=== PATIENT | female | born 1995 | race African-American/Black ===

== ENCOUNTER 2016-11-12 01:36 | Emergency (ER) | payer OTHER ==
[~2016-11-12] VITALS: Ht 180.3 cm; Wt 81.6 kg
[~2016-11-12 01:36] MED LIST: AUGMENTIN 875 M1 TAB PO; FLEXERIL10 MG PO; IBUPROFEN800 MG PO; MOTRIN 400MG (400 MG PO; MOTRIN800 MG PO
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
[2016-11-12] MEDS ORDERED: POLYTRIM EYE DR10 ML OPH (01:59)
[2016-11-12] MEDS ORDERED: IBUPROFEN600 M1 PO (01:59)
[2016-11-12 02:02] VITALS: BP 106/75
== END 2016-11-12 02:29 ==
LOC: ERH 01:36
DX: S00.81XA Abrasion of other part of head, initial encounter (principal); S00.93XA Contusion of unspecified part of head, initial encounter; W20.8XXA Other cause of strike by thrown, projected or falling object, initial encounter

== ENCOUNTER 2016-12-27 00:57 | Emergency (ER) | payer OTHER ==
[~2016-12-27] VITALS: Ht 180.3 cm; Wt 86.2 kg
[~2016-12-27 00:57] MED LIST changes: +IBUPROFEN600 M1 PO; +POLYTRIM EYE DR10 ML OPH
[2016-12-27 01:16] VITALS: BP 131/75
--- NOTE | 2016-12-27 01:26 | ED INFLUENZA/URI COMPLAINT ---
History of Present Illness General Chief Complaint: General Adult Stated Complaint: SOB/SORE THROAT/COUGH Source: patient Exam Limitations: no limitations Vital Signs & Intake/Output Vital Signs & Intake/Output Vital Signs Date Time Temp Pulse Resp B/P Pulse O2 O2 Flow FiO2 Ox Delivery Rate 12/27 0116 97.6 86 18 131/75 99 Room Air Allergies Coded Allergies: NO KNOWN ALLERGIES (06/22/13) Reconcile Medications Albuterol Sulfate (Proair Hfa) 90 MCG HFA.AER.AD 2 PUF INH Q4-6 PRN PRN WHEEZING Ibuprofen 600 MG TABLET 1 TAB PO TID PRN pain with food Polytrim (Polytrim Eye Drops) 10,000 UNIT-1 MG/ML DROPS 2 GTT OPH Q6 eye infection x7days Prednisone 50 MG TABLET 1 TAB PO DAILY ASTHMA Triage Note: PT TO ED COMPLAINING OF SOB AND PAIN IN CHEST WITH DEEP INHALATION. O2 SAT 99% IN TRIAGE. PT STATES SHE WENT TO [facility] 2 DAYS AGO AND WAS DIAGNOSED WITH STREP THROAT. SOB STARTED AROUND 3PM TODAY AFTER A MEAL. PT HAS HX OF ASTHMA BUT DOES NOT HAVE AN INHALER AT HOME. Triage Nurses Notes Reviewed? yes Onset: Gradual Duration: day(s): Timing: recent history Severity: mild, moderate Modifying Factors: Improves With: rest. Associated Symptoms: cough, nasal congestion, nasal drainage, wheezing : No Patient currently breastfeeds: No HPI: 21-year-old woman history of asthma, ran out of her albuterol inhaler, presents with 3 day history of cough with wheezing. She states that she has no fever chills sputum production. She is otherwise well and has no other concerns. Past History Travel History Traveled to [place] past 21 day No Medical History Any Pertinent Medical History? 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 No Review of Systems Review of Systems Constitutional: Reports: no symptoms. EENTM: Reports: no symptoms. Respiratory: Reports: no symptoms. Cardiovascular: Reports: no symptoms. GI: Reports: no symptoms. Genitourinary: Reports: no symptoms. Musculoskeletal: Reports: no symptoms. Skin: Reports: no symptoms. Neurological/Psychological: Reports: no symptoms. Hematologic/Endocrine: Reports: no symptoms. Immunologic/Allergic: Reports: no symptoms. All Other Systems: Reviewed and Negative Physical Exam Physical Exam General Appearance: well developed/nourished, no apparent distress Head: atraumatic, normal appearance Eyes: Bilateral: normal appearance. Ears, Nose, Throat: normal ENT inspection, moist mucous membrane Neck: normal inspection, supple, full range of motion Respiratory: normal breath sounds, chest non-tender, wheezing, minimal wheezing Cardiovascular: regular rate/rhythm Gastrointestinal: normal bowel sounds, soft, non-tender Back: normal inspection, normal range of motion Extremities: normal inspection, normal capillary refill, normal range of motion, no edema Neurologic/Psych: no motor/sensory deficits, awake, alert, oriented x 3 Skin: intact, normal color, warm/dry Core Measures Severe Sepsis Present: No Septic Shock Present: No Progress Differential Diagnosis: sinusitis, bronchitis vs asthma Plan of Care: well appearing in ED but with sx for 3 days... gave rx for prednisone and albuterol... advocated close follow up. Initial ED EKG: none Departure Departure Disposition: HOME OR SELF CARE Condition: Stable Clinical Impression Primary Impression: Asthma exacerbation Referrals: IVORY CONTRERAS,RAMO Gale (PCP/Family) Departure Forms: Customer Survey General Discharge Information Prescriptions: Current Visit Scripts Albuterol Sulfate (Proair Hfa) 2 PUF INH Q4-6 PRN PRN WHEEZING #1 INHAL Ref 3 Prednisone 1 TAB PO DAILY #5 TAB
[2016-12-27] MEDS ORDERED: PROAIR HFA8.5 GM INH (01:42)
[2016-12-27] MEDS ORDERED: PREDNISONE50 M1 PO (01:43)
== END 2016-12-27 01:54 ==
LOC: ERH 00:57
DX: J45.901 Unspecified asthma with (acute) exacerbation (principal); R07.89 Other chest pain

== ENCOUNTER 2017-10-29 23:51 | Emergency (ER) | payer OTHER ==
[~2017-10-29] VITALS: Ht 182.9 cm; Wt 88.5 kg
[~2017-10-29 23:51] MED LIST changes: +AMOXICILLIN500 M2 PO; +AUGMENTIN 875-1 EACH PO; +IBUPROFEN800 M1 PO; +PREDNISONE50 M1 PO; +PROAIR HFA8.5 GM INH
[2017-10-30 00:25] VITALS: BP 129/58
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
[2017-10-30] MEDS ORDERED: IBUPROFEN600 M1 PO (00:40)
== END 2017-10-30 01:02 ==
LOC: ERH 23:51
DX: T22.112A Burn of first degree of left forearm, initial encounter (principal); X15.0XXA Contact with hot stove (kitchen), initial encounter; Y92.9 Unspecified place or not applicable; Y93.9 Activity, unspecified
CPT/HCPCS: 90471